=== PATIENT | male | born 1955 | race Caucasian/White ===

== ENCOUNTER → 2023-04-11 10:55 | Outpatient (BNVA) | payer MEDICARE, SELFPAY | PROVIDERS: Family Provider General Practice; PCP Family Medicine; Visit Provider Family Medicine | DX: Z13.220 Encounter for screening for lipoid disorders (principal); F17.200 Nicotine dependence, unspecified, uncomplicated; R06.00 Dyspnea, unspecified | CPT/HCPCS: 80053; 80061; 85025 ==

== ENCOUNTER → 2023-05-07 16:01 | Outpatient (BNVA) | payer MEDICARE, SELFPAY | PROVIDERS: Family Provider General Practice; PCP Family Medicine; Visit Provider Family Medicine | DX: L98.9 Disorder of the skin and subcutaneous tissue, unspecified (principal) | CPT/HCPCS: 88304 ==

== ENCOUNTER 2023-07-12 07:42 | Outpatient (CLI) | payer MEDICARE, SELFPAY ==
--- NOTE | 2023-07-12 07:47 | CT_ITS ---
WS: [id number] LDCT LUNG CANCER SCREENING HISTORY: NICOTINE DEPENDENCE TECHNIQUE: Axial imaging performed from the apices to 1 cm below the costophrenic angles. Coronal and sagittal reformats are submitted with axial MIP series. All CT scans at [facility] use at least one of these dose optimization techniques: automated exposure control; mA and/or kV adjustment per patient size (includes targeted exams where dose is matched to clinical indication); or iterativ e reconstruction. DLP: 62.61 mGy.cm DIvol: Mean CTDIvol: 1.30 (mGy) COMPARISON: None available. Diagnostic quality: Mild breathing motion artifact. Lungs: Mild pulmonary venous congestion and fluid overload. Small bilateral layering pleural effusion s, RIGHT greater than LEFT with compressive atelectasis. There is very slight pleural thickening luna g the fissures which may improve with resolution of the pleural effusions and fluid overload. No pulm onary mass identified. There is a small pleural tag at the RIGHT apex. Heart: Moderate cardiomegaly.. Other findings: Mild atherosclerosis aorta. There are a few small mediastinal and hilar lymph nodes. Pulmonary artery is normal size. Scattered coronary artery calcifications. IMPRESSION: CT/CT lung screening [id number] LUNG-RADS: 1S-Negative with Significant Findings FOLLOW UP: 12 Month: Continue annual screening with LDCT OTHER FINDINGS (S MODIFIER): Mild pulmonary edema with fluid overload and small bilateral pleural effusions, RIGHT greater than LEFT.
== END 2023-07-12 07:43 | disposition home or self-care (01) ==
PROVIDERS: Family Provider General Practice; PCP Family Medicine; Visit Provider Family Medicine
DX: Z12.2 Encounter for screening for malignant neoplasm of respiratory organs; F17.218 Nicotine dependence, cigarettes, with other nicotine-induced disorders; I50.20 Unspecified systolic (congestive) heart failure
CPT/HCPCS: 71271

== ENCOUNTER 2023-07-26 07:42 | Outpatient (CLI) | payer MEDICARE, MEDICAID, SELFPAY ==
--- NOTE | 2023-07-26 08:00 | USCV_ITS ---
Nicholas Jeter Age: 67 Gender: M : 1955 Exam Date: 07/26/2023 08:06 Ordering Phys: Daren Buenrostro MD Technologist: Aden Pearson Exam Location: [facility] [place] Indication: dyspnea, COPD BP: 160 / 80 HR: Rhythm: Sinus Technical Quality: Good MEASUREMENTS (Male / Female) Normal Values 2D ECHO LV Diastolic Diameter PLAX 5.4 cm 4.2 - 5.9 / 3.9 - 5.3 cm IVS Diastolic Thickness 1.1 cm 0.6 - 1.0 / 0.6 - 0.9 cm IVS Systolic Thickness 1.7 cm LVPW Diastolic Thickness 1.1 cm 0.6 - 1.0 / 0.6 - 0.9 cm LVPW Systolic Thickness 1.9 cm LVOT Diameter 2.1 cm LV Ejection Fraction 2D Teich 64.8 % LV Ejection Fraction MOD 2C 6.2 % Aorta at Sinotubular Diameter 2.2 cm IVC Diameter 1.4 cm M-MODE LA Ao Ratio MM 1.4 AV Cusp Separation MM 2.3 cm DOPPLER LVOT Peak Velocity 79.0 cm/s AV Area Cont Eq vti 2.3 cm squared MV Area PHT 4.1 cm squared Mitral E to A Ratio 2.6 TV Peak Velocity 376.3 cm/s TR Peak Velocity 400.0 cm/s TR Peak Gradient 64.0 mmHg Right Atrial Pressure 3.0 mmHg Pulmonary Artery Systolic Pressu 67.0 mmHg PV Peak Velocity 71.0 cm/s FINDINGS Left Ventricle Left ventricle is mildly dilated. LV systolic function is severely reduced with EF of 25 to 30%. Severe global hypokinesis is seen. Right Ventricle Normal in size and function Right Atrium Normal in size Left Atrium Normal in size Mitral Valve Structurally normal mitral valve. Mild mitral regurgitation Aortic Valve Normal aortic valve. No significant stenosis or regurgitation. Tricuspid Valve Moderate tricuspid regurgitation. RVSP is more than 60 mmHg. This is consistent with severe pulmonary hypertension Pulmonic Valve Not well visualized Pericardium Normal Aorta Normal in size IVC Appears to be normal CONCLUSIONS Left ventricle is mildly dilated LV systolic function is severely reduced with EF of 25 to 30%. Severe global hypokinesis seen. Mild mitral regurgitation Moderate tricuspid regurgitation Severe pulmonary hypertension No comparison studies are available Eliecer Cross MD (Electronically Signed) Final Date: 04 August 2023 11:23 S
== END 2023-07-26 07:43 | disposition home or self-care (01) ==
LOC: RAD 07:42
PROVIDERS: Family Provider General Practice; PCP Family Medicine; Visit Provider Family Medicine
DX: R07.9 Chest pain, unspecified (principal); I50.20 Unspecified systolic (congestive) heart failure; I08.1 Rheumatic disorders of both mitral and tricuspid valves; I27.20 Pulmonary hypertension, unspecified; J44.9 Chronic obstructive pulmonary disease, unspecified; F17.200 Nicotine dependence, unspecified, uncomplicated
CPT/HCPCS: 93306

== ENCOUNTER 2023-09-27 13:47 | Outpatient (CLI) | payer MEDICARE, MEDICAID, SELFPAY ==
[2023-09-27 14:09] VITALS: PULSE 74; RESP 18; O2SAT 98
[2023-09-27] MEDS: albuterol 2.5 mg/3 mL Neb INHALATION (14:09)
[2023-09-27 14:13] VITALS: PULSE 80
== END 2023-09-27 13:48 | disposition home or self-care (01) ==
LOC: RT 13:48
PROVIDERS: Family Provider General Practice; PCP Family Medicine; Visit Provider Family Medicine
DX: J44.9 Chronic obstructive pulmonary disease, unspecified (principal)
CPT/HCPCS: 94060; 94726; 94729